=== PATIENT | male | born 1980 | race Caucasian/White ===

== ENCOUNTER 2025-02-13 15:59 | Emergency (ER) | payer MEDICAID ==
[~2025-02-13] VITALS: Ht 182.9 cm; Wt 80.6 kg
[2025-02-13 16:07] VITALS: TEMP 98.8
[2025-02-13] MEDS ORDERED: LORA-269 PO (17:28)
--- NOTE | 2025-02-13 17:29 | Physician Documentation ---
History of Present Illness ~ Chief Complaint: Detox Clearance Stated Complaint: DETOX MEDICATIONS FOR EMPIRE Time Seen by MD: 17:18 Primary Medical Doctor: NONE Source: patient Mode of Arrival: POV Exam Limitations: no limitations HPI Patient who is here for detox clearance. Drinks a L of alcohol a day when he is drinking whiskey but if he drinks beer he can drink 24 beers a day. He was sober for a couple years and fell off the wagon a month ago. The 1st time he did it on his own but this time he is going to detox. They do not give out medication so he is here to get a script to help him through detox. Tetanus within 5 years?: No Medication Reconciliation Allergies: Coded Allergies: Penicillins (Verified Allergy, Severe, ANAPHYLAXIS, 02/13/25) Scheduled Lorazepam (Ativan), 1 TAB PO Q8H Review of Systems All Other Systems at this time: Reviewed and Negative Physical Exam Vital Signs: Temperature: 98.8, Source: Temporal, Heart Rate: 99, Respiratory Rate: 16, BP: 150/103, Pulse Oximetry: 96, Weight: 80.600 Oxygen Flow Rate: 0 General Appearance: alert, WD/WN Face: normal Respiratory: lungs clear, normal breath sounds, no respiratory distress Chest: no accessory muscle use Cardiovascular: regular rate, rhythm, no JVD, no murmur Gastrointestinal: normal palpation, non-tender Skin: warm/dry, normal color Neurologic: oriented x4, memory intact Motor / Sensory: no motor deficit Cerebellar Function: normal Affect: appropriate Appearance/Memory/Insight: appropriate appearance Thoughts/Hallucinations: normal thought pattern Behavior/Eye contact/Speech: cooperative, good eye contact Progress Progress Note Patient here for medical clearance for detox. He is medically cleared. I am g iving him a script for Ativan 1 mg 3 times a day 12. Tablets. 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 Return here at any time if any complications. Results/Orders Results/Orders Vital Signs 02/13/25 02/13/25 02/13/25 02/13/25 16:07 17:09 17:14 17:37 Temp 98.8 Pulse 107 99 98 Resp 16 17 16 16 B/P (MAP) 153/100 150/103 (119) 150/103 Pulse Ox 94 96 95 O2 Flow Rate 0 0 Departure Disposition: 01 HOME / SELF CARE / HOMELESS Impression: Primary Impression: Alcohol abuse Condition: Stable Discharge Instructions: Alcohol Withdrawal Syndrome Additional Instructions: cellar supervisor your prescription and go to detox. Return here if any complications at any time. Referrals: NO PRIMARY CARE PROVIDER (PCP) Prescriptions Lorazepam (Ativan) 1 Mg Tablet 1 TAB PO Q8H for 4 Days, #12 TAB 0 Refills Prov: CARLO VICTORIA MD 02/13/25 Signature Scribe Signature: No scribe used Attestation: No scribe used CARLO VICTORIA MD Feb 13, 2025 17:29
[2025-02-13 17:37] VITALS: BP 150/103; PULSE 98; RESP 16; O2SAT 95
== END 2025-02-13 17:39 | disposition home or self-care (01) ==
LOC: ER 16:01
DX: F10.10 Alcohol abuse, uncomplicated (principal); Z88.0 Allergy status to penicillin; Z79.899 Other long term (current) drug therapy; Y90.9 Presence of alcohol in blood, level not specified
CPT/HCPCS: 99281; 99283